=== PATIENT | male | born 1990 | race Hispanic/Latino ===

== ENCOUNTER 2021-04-14 04:36 | Inpatient (IN) | payer OTHER ==
--- NOTE | 2021-04-14 04:51 | Emergency Department Report ---
ED General Adult HPI - General Stated complaint: OVERDOSE - History of Present Illness Initial comments: 30-year-old male, no past medical history, presents to ED following heroin overdose. Patient at home, found unresponsive by his father. Father reports cold water on him and called EMS. When EMS arrived, patient had agonal respirations and pinpoint pupils. Patient appeared to have had an episode of emesis. Patient was given Narcan 2 mg by EMS. He is currently awake and alert. However, patient is hypoxic, with O2 sat of 80% on nonrebreather. EMS reports rales in all lung henriquez. Patient admits to using heroin. He denies any previous cough, fever, shortness of breath. Patient has not received a COVID-19 vaccine. -: This morning Quality: other (Painless) Improves with: none Worsens with: none Associated Symptoms: denies other symptoms Treatments Prior to Arrival: other (Narcan) - Related Data Allergies Allergy/AdvReac Type Severity Reaction Status Date / Time No Known Allergies Allergy Verified 04/14/21 05:54 ED Review of Systems ROS: Stated complaint: OVERDOSE Other details as noted in HPI Comment: All other systems reviewed and negative Constitutional: denies: fever Respiratory: denies: cough, shortness of breath ED Physical Exam - General General appearance: alert, in no apparent distress - Head Head exam: Present: atraumatic, normocephalic - Eye Eye exam: Present: normal appearance, PERRL, EOMI - ENT ENT exam: Present: mucous membranes moist - Neck Neck exam: Present: normal inspection - Respiratory Respiratory exam: Present: rales - Cardiovascular Cardiovascular Exam: Present: normal rhythm, tachycardia - GI/Abdominal GI/Abdominal exam: Present: soft. Absent: distended, tenderness - Extremities Exam Extremities exam: Present: normal inspection - Neurological Exam Neurological exam: Present: alert, oriented X3 - Psychiatric Psychiatric exam: Present: normal affect, normal mood - Skin Skin exam: Present: warm, dry, intact, normal color ED Course Vital Signs 04/14/21 04/14/21 04/14/21 04:42 04:52 05:00 Temperature 96.9 F L Pulse Rate 108 H 114 H Respiratory 27 H 18 27 H Rate Blood Pressure 108/61 O2 Sat by Pulse 80 L 84 78 L Oximetry 04/14/21 04/14/21 05:13 05:30 Temperature Pulse Rate 105 H 112 H Respiratory 23 16 Rate Blood Pressure 110/60 O2 Sat by Pulse 96 96 Oximetry ED Medical Decision Making - Lab Data Result diagrams: 04/14/21 04:52 04/14/21 04:52 - Radiology Data Radiology results: report reviewed, image reviewed - Medical Decision Making 30-year-old male presents to ED following heroin overdose. Patient was given Narcan in the field. He is currently A&O x3. Patient hypoxic with O2 sats 83% on nonrebreather. Chest x-ray shows bilateral pneumonia. This is likely secondary to aspiration, however spoke with hospitalist and will order Covid labs and testing. Patient has been given 1 dose of Zosyn here in the ED. He has been placed on BiPAP. Patient will be admitted by hospitalist, Dr. Jamison, for further management. Critical Care Time: Yes Critical care time in (mins) excluding proc time.: 35 Critical care attestation.: If time is entered above; I have spent that time in minutes in the direct care of this critically ill patient, excluding procedure time. Critical Care Time: 35 min ED Disposition Clinical Impression: Acute respiratory failure with hypoxia, Pneumonia, Accidental heroin overdose, Hyperglycemia Disposition: DC-09 OP ADMIT IP TO THIS HOSP Is pt being admited?: Yes Condition: Stable
--- NOTE | 2021-04-14 05:13 | XRay Report ---
CHEST 1 VIEW 04/14/2021 3:54 AM INDICATION / CLINICAL INFORMATION: sob. COMPARISON: None available. FINDINGS: SUPPORT DEVICES: None. HEART / MEDIASTINUM: No significant abnormality. LUNGS / PLEURA: Bilateral airspace disease, right greater than left. No pneumothorax. ADDITIONAL FINDINGS: No significant additional findings. IMPRESSION: 1. Bilateral pneumonia. Signer Name: Talia Davis MD Signed: 04/14/2021 5:09 AM Workstation Name: [id number]
[2021-04-14] MEDS ORDERED: PIPERACIL/TAZOBACTA 4.5/NS 100 4.5 GM/100 ML VIAL IV ONE (05:20)
[2021-04-14 05:32] LABS: Hematocrit 33.4 % (35.5-45.6); Hemoglobin 11.5 gm/dl (11.8-15.2); Mean Corpuscular HGB Conc 35 % (32-34); Mean Corpuscular Volume 87 fl (84-94); Platelet Count 245 K/mm3 (140-440); Red Blood Count 3.83 M/mm3 (3.65-5.03); Red Cell Distribution Width 15.1 % (13.2-15.2)
[2021-04-14] MEDS ORDERED: ACETAMINOPHEN 325 MG TAB PO PRN (05:39)
[2021-04-14] MEDS ORDERED: HYDROmorphone 1 MG/1 ML INJ IV PRN (05:39)
[2021-04-14] MEDS ORDERED: ALBUTEROL 2.5 MG/3 ML NEBU IH PRN (05:39)
[2021-04-14] MEDS ORDERED: oxyCODONE /ACETAMINOPHEN 5-325MG TAB PO PRN (05:39)
[2021-04-14] MEDS ORDERED: ONDANSETRON 4 MG/2 ML INJ IV PRN (05:39)
--- NOTE | 2021-04-14 05:47 | History and Physical Report ---
History of Present Illness Date of examination: 04/14/21 Date of admission: 04/14/21 Chief complaint: Heroin overdose History of present illness: 30-year-old male with history of drug abuse was brought to the hospital because of heroin overdose. Patient was found unresponsive by his father at home. Father reports cold water on him and called EMS. When EMS arrived, patient had agonal respirations and pinpoint pupils. Patient appeared to have had an episode of emesis. Patient was given Narcan 2 mg by EMS. He is currently awake and alert. However, patient is hypoxic, with O2 sat of 80% on nonrebreather. EMS reports rales in all lung henriquez. Patient admits to using heroin. He denies any previous cough, fever, shortness of breath. Patient has not received a COVID-19 vaccine. Past History Past Medical History: other Medications and Allergies Allergies Allergy/AdvReac Type Severity Reaction Status Date / Time No Known Allergies Allergy Unverified 04/14/21 04:52 Active Meds: Active Medications Piperacillin Sod/Tazobactam Sod (Zosyn/Ns 4.5gm/100ml) 4.5 gm in 100 mls @ 200 mls/hr IV ONCE ONE; Protocol Stop: 04/14/21 05:49 Review of Systems Constitutional: other (Unresponsive) Neurological: change in mentation Exam - Constitutional Vitals: Temp Pulse Resp BP Pulse Ox 96.9 F L 112 H 16 110/60 96 04/14/21 04:52 04/14/21 05:30 04/14/21 05:30 04/14/21 05:30 04/14/21 05:30 General appearance: Present: no acute distress, well-nourished - EENT Eyes: Present: PERRL ENT: hearing intact, clear oral mucosa - Neck Neck: Present: supple, normal ROM - Respiratory Respiratory effort: normal Respiratory: bilateral: diminished - Cardiovascular Heart Sounds: Present: S1 & S2. Absent: rub, click - Extremities Extremities: pulses symmetrical, No edema Peripheral Pulses: within normal limits - Abdominal General gastrointestinal: Present: soft, non-tender, non-distended, normal bowel sounds Male genitourinary: Present: normal - Integumentary Integumentary: Present: clear, warm, dry - Musculoskeletal Musculoskeletal: gait normal, strength equal bilaterally - Psychiatric Psychiatric: appropriate mood/affect, intact judgment & insight - Neurologic Neurologic: CNII-XII intact, moves all extremities Results - Imaging and Cardiology Chest x-ray: report reviewed Assessment and Plan VTE prophylaxis?: Chemical Plan of care discussed with patient/family: Yes - Patient Problems (1) Heroin overdose Current Visit: Yes Status: Acute Plan to address problem: Admit the patient to the [facility]. Put the patient on BiPAP. DuoNeb by nebulizer every 4 hours. Albuterol via nebulizer every 4 hours as needed. We will monitor the patient closely. We counseled the patient regarding quit taking heroin (2) Acute respiratory failure with hypoxia Current Visit: Yes Status: Acute Plan to address problem: Put the patient on BiPAP. DuoNeb by nebulizer every 4 hours. Albuterol via nebulizer every 4 hours as needed. Zosyn 4.5 g IV every 8 hours and Levaquin 750 mg IV daily. We do the blood cultures sputum culture we will monitor the patient closely. We counseled the patient regarding quit taking heroin (3) Pneumonia Current Visit: Yes Status: Acute Plan to address problem: DuoNeb by nebulizer every 4 hours. Albuterol via nebulizer every 4 hours as needed. Zosyn 4.5 g IV every 8 hours and Levaquin 750 mg IV daily. We do the blood cultures sputum culture we will monitor the patient closely. Repeat CBC BMP in the morning (4) DVT prophylaxis Current Visit: Yes Status: Acute Plan to address problem: Heparin 5000 units subcu every 8 hours for DVT prophylaxis. Pepcid 20 mg IV every 12 hours for GI prophylaxis. Patient is a full code
[2021-04-14 05:58] LABS: Alanine Aminotransferase 58 units/L (7-56); Albumin 3.7 g/dL (3.9-5); BUN/Creatinine Ratio 12; Blood Urea Nitrogen 12 mg/dL (9-20); Calcium 8.9 mg/dL (8.4-10.2); Hemolysis Index 8
[2021-04-14 06:00] LABS: Bilirubin,Direct < 0.2 mg/dL (0-0.2)
[2021-04-14] MEDS ORDERED: D5W/0.45% NACL 1,000 ML IV SCH (06:00)
[2021-04-14] MEDS ORDERED: INSULIN REGULAR, HUMAN 100 UNITS/1 ML IV ONE (06:04)
[2021-04-14 06:45] LABS: C-Reactive Protein 1.7 mg/dL (0.00-1.30)
[2021-04-14] MEDS: IPRATROPIUM/ALBUTEROL SULFATE 3 ML AMPUL.NEB IH SCH ×3 (07:39→20:00)
--- NOTE | 2021-04-14 09:00 | Cat Scan Report ---
CTA CHEST WITH IV CONTRAST INDICATION / CLINICAL INFORMATION: Elevated d-dimer. TECHNIQUE: Axial CT images were obtained through the chest after injection of 100 mL IV contrast. 3 plane MIP an d/or 3D reconstructions were produced. All CT scans at this location are performed using CT dose redu ction for [facility] by means of automated exposure control. COMPARISON: Chest radiograph performed today FINDINGS: PULMONARY ARTERIES: No pulmonary emboli. THORACIC AORTA: No significant abnormality. HEART: No significant abnormality. CORONARY ARTERIES: No significant calcification. PLEURA: No pleural effusion. No pneumothorax. LYMPH NODES: No significant adenopathy. LUNGS: The lungs are abnormal. Large areas of consolidated lung are seen in both lower lobes containi ng air bronchograms. Similar areas of airspace disease are seen throughout the right upper lobe, and to a lesser extent, left upper lobe. The appearance is consistent with severe bilateral pneumonia. ADDITIONAL FINDINGS: None. UPPER ABDOMEN: No acute findings. SKELETAL STRUCTURES: No significant osseous abnormality. IMPRESSION: 1. No CT evidence for pulmonary embolism. 2. Extensive bilateral airspace disease consistent with bilateral pneumonia. Signer Name: Chinyere Paris MD Signed: 04/14/2021 8:55 AM Workstation Name: [id number]
[2021-04-14] MEDS: FAMOTIDINE 20 MG/2 ML INJ IV SCH (10:18)
--- NOTE | 2021-04-14 11:37 | Event Note ---
Date: 04/14/21 Patient with Heroin overdose, bilateral pneumonia. Initially was on BIPAP, now on ventimask. Pulm consulted. Covid PUI. Swab collected as per Nurse. I have seen and examined patient.
[2021-04-14 12:02] LABS: Total Cells Counted 100
[2021-04-14 12:03] LABS: Platelet Estimate Consistent w Auto; RBC Morphology Normal
[2021-04-14] MEDS: PIPERACIL/TAZOBACTA 4.5/NS 100 4.5 GM/100 ML VIAL IV SCH (13:51)
[2021-04-14] MEDS ORDERED: D5W/0.9% NACL 1,000 ML IV SCH (14:00)
[2021-04-15] MEDS: FAMOTIDINE 20 MG/2 ML INJ IV SCH ×2 (05:45→11:43)
[2021-04-15] MEDS: PIPERACIL/TAZOBACTA 4.5/NS 100 4.5 GM/100 ML VIAL IV SCH ×2 (05:46→07:06)
[2021-04-15 06:19] LABS: Basophils % (Auto) 0.3 % (0.0-1.8); Eosinophils # (Auto) 0.3 K/mm3 (0.0-0.4); Eosinophils % (Auto) 2.8 % (0.0-4.3); Hematocrit 31.5 % (35.5-45.6); Hemoglobin 10.6 gm/dl (11.8-15.2); Lymphocytes # (Auto) 1.7 K/mm3 (1.2-5.4); Lymphocytes % (Auto) 14.5 % (13.4-35.0); Mean Corpuscular HGB Conc 34 % (32-34); Mean Corpuscular Volume 86 fl (84-94); Monocytes # (Auto) 0.6 K/mm3 (0.0-0.8); Monocytes % (Auto) 5.4 % (0.0-7.3); Platelet Count 234 K/mm3 (140-440); Red Blood Count 3.66 M/mm3 (3.65-5.03); Red Cell Distribution Width 14.7 % (13.2-15.2)
[2021-04-15 06:44] LABS: Blood Urea Nitrogen 6 mg/dL (9-20); Calcium 8.7 mg/dL (8.4-10.2); Hemolysis Index 3
[2021-04-15 06:58] LABS: BUN/Creatinine Ratio 9
[2021-04-15 07:07] VITALS: BP 112/73
--- NOTE | 2021-04-15 09:27 | Progress Note ---
Assessment and Plan Assessment and plan: (1) Heroin overdose Current Visit: Yes Status: Acute Plan to address problem: Admit the patient to the [facility]. Put the patient on BiPAP. DuoNeb by nebulizer every 4 hours. Albuterol via nebulizer every 4 hours as needed. We will monitor the patient closely. We counseled the patient regarding quit taking heroin (2) Acute respiratory failure with hypoxia Current Visit: Yes Status: Acute Plan to address problem: Put the patient on BiPAP. DuoNeb by nebulizer every 4 hours. Albuterol via nebulizer every 4 hours as needed. Zosyn 4.5 g IV every 8 hours and Levaquin 750 mg IV daily. We do the blood cultures sputum culture we will monitor the patient closely. We counseled the patient regarding quit taking heroin (3) Pneumonia Current Visit: Yes Status: Acute Plan to address problem: DuoNeb by nebulizer every 4 hours. Albuterol via nebulizer every 4 hours as needed. Zosyn 4.5 g IV every 8 hours and Levaquin 750 mg IV daily. We do the blood cultures sputum culture we will monitor the patient closely. Repeat CBC BMP in the morning (4) DVT prophylaxis Current Visit: Yes Status: Acute Plan to address problem: Heparin 5000 units subcu every 8 hours for DVT prophylaxis. Pepcid 20 mg IV every 12 hours for GI prophylaxis. Patient is a full code Acute toxic metabolic encephalopathy due to Heroin overdose 04/15/21 patient presented with unresponsiveness after Heropin overdose. He is diagnosed with acute toxic metabolic encephalopathy. He also has acute respiratory failure due to bilateral pneumonia. Continue Antibiotics. Covid test negative. Patient now on Oxygen by [place] and orders put in to transfer to Med/surg. He is now fully awake and alert. History Interval history: Patient presented with unresponsiveness after using Heroin Now awake,alert Hospitalist Physical - Physical exam Narrative exam: Gen: Not in acute distress, lying in bed, ventimask on HEENT: Normocephalic, atraumatic Neck : supple, no JVD Heart:S1 and S2 reg, no murmurs, rubs or gallop Lungs: clear to auscultation bilaterally, no wheeze Abd: Soft , non tender, non distended, normal bowel sounds Ext: No edema, no clubbing, no cyanosis Neuro: Awake, alert, oriented X 3, moves all ext - Constitutional Vitals: Temp Pulse Resp BP Pulse Ox 96.9 F L 100 H 24 112/73 99 04/14/21 04:52 04/15/21 08:00 04/15/21 08:00 04/15/21 07:30 04/15/21 09:23 General appearance: Present: no acute distress, well-nourished Results - Labs CBC & Chem 7: 04/15/21 05:34 04/15/21 05:34 Labs: Laboratory Last Values WBC 11.9 K/mm3 (4.5-11.0) H 04/15/21 05:34 RBC 3.66 M/mm3 (3.65-5.03) 04/15/21 05:34 Hgb 10.6 gm/dl (11.8-15.2) L 04/15/21 05:34 Hct 31.5 % (35.5-45.6) L 04/15/21 05:34 MCV 86 fl (84-94) 04/15/21 05:34 MCH 29 pg (28-32) 04/15/21 05:34 MCHC 34 % (32-34) 04/15/21 05:34 RDW 14.7 % (13.2-15.2) 04/15/21 05:34 Plt Count 234 K/mm3 (140-440) 04/15/21 05:34 Lymph % (Auto) 14.5 % (13.4-35.0) 04/15/21 05:34 Stone % (Auto) 5.4 % (0.0-7.3) 04/15/21 05:34 Eos % (Auto) 2.8 % (0.0-4.3) 04/15/21 05:34 Baso % (Auto) 0.3 % (0.0-1.8) 04/15/21 05:34 Lymph # (Auto) 1.7 K/mm3 (1.2-5.4) 04/15/21 05:34 Stone # (Auto) 0.6 K/mm3 (0.0-0.8) 04/15/21 05:34 Eos # (Auto) 0.3 K/mm3 (0.0-0.4) 04/15/21 05:34 Baso # (Auto) 0.0 K/mm3 (0.0-0.1) 04/15/21 05:34 Add Manual Diff Complete 04/14/21 04:52 Total Counted 100 04/14/21 04:52 Seg Neutrophils % 77.0 % (40.0-70.0) H 04/15/21 05:34 Seg Neuts % (Manual) 71.0 % (40.0-70.0) H 04/14/21 04:52 Band Neutrophils % 24.0 % 04/14/21 04:52 Lymphocytes % (Manual) 5.0 % (13.4-35.0) L 04/14/21 04:52 Nucleated RBC % Not Reportable 04/14/21 04:52 Seg Neutrophils # 9.2 K/mm3 (1.8-7.7) H 04/15/21 05:34 Seg Neutrophils # Man 11.8 K/mm3 (1.8-7.7) H 04/14/21 04:52 Band Neutrophils # 4.0 K/mm3 04/14/21 04:52 Lymphocytes # (Manual) 0.8 K/mm3 (1.2-5.4) L 04/14/21 04:52 Abs React Lymphs (Man) 0.0 K/mm3 04/14/21 04:52 Monocytes # (Manual) 0.0 K/mm3 (0.0-0.8) 04/14/21 04:52 Eosinophils # (Manual) 0.0 K/mm3 (0.0-0.4) 04/14/21 04:52 Basophils # (Manual) 0.0 K/mm3 (0.0-0.1) 04/14/21 04:52 Metamyelocytes # 0.0 K/mm3 04/14/21 04:52 Myelocytes # 0.0 K/mm3 04/14/21 04:52 Promyelocytes # 0.0 K/mm3 04/14/21 04:52 Blast Cells # 0.0 K/mm3 04/14/21 04:52 WBC Morphology Not Reportable 04/14/21 04:52 Hypersegmented Neuts Not Reportable 04/14/21 04:52 Hyposegmented Neuts Not Reportable 04/14/21 04:52 Hypogranular Neuts Not Reportable 04/14/21 04:52 Smudge Cells Not Reportable 04/14/21 04:52 Toxic Granulation Not Reportable 04/14/21 04:52 Toxic Vacuolation Not Reportable 04/14/21 04:52 Dohle Bodies Not Reportable 04/14/21 04:52 Pelger-Huet Anomaly Not Reportable 04/14/21 04:52 Niranjan Rods Not Reportable 04/14/21 04:52 Platelet Estimate Consistent w auto 04/14/21 04:52 Clumped Platelets Not Reportable 04/14/21 04:52 Plt Clumps, EDTA Not Reportable 04/14/21 04:52 Large Platelets Not Reportable 04/14/21 04:52 Giant Platelets Not Reportable 04/14/21 04:52 Platelet Satelliting Not Reportable 04/14/21 04:52 Plt Morphology Comment Not Reportable 04/14/21 04:52 RBC Morphology Normal 04/14/21 04:52 Dimorphic RBCs Not Reportable 04/14/21 04:52 Polychromasia Not Reportable 04/14/21 04:52 Hypochromasia Not Reportable 04/14/21 04:52 Poikilocytosis Not Reportable 04/14/21 04:52 Anisocytosis Not Reportable 04/14/21 04:52 Microcytosis Not Reportable 04/14/21 04:52 Macrocytosis Not Reportable 04/14/21 04:52 Spherocytes Not Reportable 04/14/21 04:52 Pappenheimer Bodies Not Reportable 04/14/21 04:52 Sickle Cells Not Reportable 04/14/21 04:52 Target Cells Not Reportable 04/14/21 04:52 Tear Drop Cells Not Reportable 04/14/21 04:52 Ovalocytes Not Reportable 04/14/21 04:52 Helmet Cells Not Reportable 04/14/21 04:52 Brown-Waldo Bodies Not Reportable 04/14/21 04:52 Philadelphia Rings Not Reportable 04/14/21 04:52 Edison Cells Not Reportable 04/14/21 04:52 Bite Cells Not Reportable 04/14/21 04:52 Crenated Cell Not Reportable 04/14/21 04:52 Elliptocytes Not Reportable 04/14/21 04:52 Acanthocytes (Spur) Not Reportable 04/14/21 04:52 Rouleaux Not Reportable 04/14/21 04:52 Hemoglobin C Crystals Not Reportable 04/14/21 04:52 Schistocytes Not Reportable 04/14/21 04:52 Malaria parasites Not Reportable 04/14/21 04:52 Yasmany Bodies Not Reportable 04/14/21 04:52 Hem Pathologist Commnt No 04/14/21 04:52 D-Dimer 942.21 ng/mlDDU (0-234) H 04/14/21 05:43 ABG pH 7.381 (7.320-7.450) 04/14/21 12:05 POC ABG pCO2 44.0 mmHg (32.0-48.0) 04/14/21 12:05 POC ABG pO2 58.9 mmHg (83-108) L 04/14/21 12:05 POC ABG HCO3 25.5 04/14/21 12:05 ABG O2 Saturation 89.9 (0-100) 04/14/21 12:05 POC ABG Base Excess 0.2 04/14/21 12:05 ABG Hemoglobin 11.6 (12.0-17.5) L 04/14/21 12:05 ABG Oxyhemoglobin 89.5 (94-98) L 04/14/21 12:05 ABG Methemoglobin 0.3 (0.0-1.5) 04/14/21 12:05 ABG Sodium 134.7 mmol/L (136.0-145.0) L 04/14/21 12:05 ABG Potassium 4.3 mmol/L (3.40-4.50) 04/14/21 12:05 ABG Chloride 105.0 mmol/L (98-107) 04/14/21 12:05 ABG Glucose 101 mg/dL (65-95) H 04/14/21 12:05 Carboxyhemoglobin 0.2 (0.5-1.5) L 04/14/21 12:05 FiO2 % 50.0 04/14/21 12:05 Sodium 142 mmol/L (137-145) D 04/15/21 05:34 Potassium 4.1 mmol/L (3.6-5.0) 04/15/21 05:34 Chloride 105.0 mmol/L (98-107) 04/15/21 05:34 Carbon Dioxide 28 mmol/L (22-30) 04/15/21 05:34 Anion Gap 13 mmol/L 04/15/21 05:34 BUN 6 mg/dL (9-20) L 04/15/21 05:34 Creatinine 0.7 mg/dL (0.8-1.3) L 04/15/21 05:34 Estimated GFR > 60 ml/min 04/15/21 05:34 BUN/Creatinine Ratio 9 % 04/15/21 05:34 Glucose 102 mg/dL (75-100) H 04/15/21 05:34 POC Glucose 70 mg/dL (70-105) 04/14/21 07:32 Calcium 8.7 mg/dL (8.4-10.2) 04/15/21 05:34 Ferritin 868.7 ng/mL (30.0-300.0) H 04/14/21 05:43 Total Bilirubin 0.40 mg/dL (0.1-1.2) 04/14/21 04:52 Direct Bilirubin < 0.2 mg/dL (0-0.2) 04/14/21 04:52 Indirect Bilirubin 0.2 mg/dL 04/14/21 04:52 AST 127 units/L (5-40) H 04/14/21 04:52 ALT 58 units/L (7-56) H 04/14/21 04:52 Alkaline Phosphatase 130 units/L (35-129) H 04/14/21 04:52 Lactate Dehydrogenase 266 units/L (91-180) H 04/14/21 05:43 C-Reactive Protein 1.70 mg/dL (0.00-1.30) H 04/14/21 05:43 Total Protein 6.0 g/dL (6.3-8.2) L 04/14/21 04:52 Albumin 3.7 g/dL (3.9-5) L 04/14/21 04:52 Albumin/Globulin Ratio 1.6 % 04/14/21 04:52 Procalcitonin 0.98 ng/mL (<0.15) 04/14/21 05:43 Arterial Blood Glucose 101 mg/dL (65-95) H 04/14/21 12:05 Coronavirus (PCR) Negative (Negative) 04/14/21 Unknown Microbiology: Microbiology 04/14/21 05:43 Peripheral/Venous Blood Culture - Preliminary Culture in Progress 04/14/21 05:43 Peripheral/Venous Blood Culture - Preliminary Culture in Progress Active Medications - Current Medications Current Medications: Generic Name Dose Route Start Last Admin Trade Name Freq PRN Reason Stop Dose Admin Acetaminophen 650 mg 04/14/21 05:39 Acetaminophen 325 Mg Tab PO Q4H PRN Pain MILD(1-3)/Fever >100.5/ANDERS Albuterol 2.5 mg 04/14/21 05:39 Albuterol 2.5 Mg/3 Ml Nebu IH Q4HRT PRN Shortness Of Breath Albuterol/Ipratropium 1 ampul 04/14/21 08:00 04/14/21 20:00 Ipratropium/Albuterol Sulfate 3 Ml Ampul.Neb IH 1 ampul Q6HRT OCTAVIANO Administration Famotidine 20 mg 04/14/21 10:00 04/15/21 05:45 Famotidine 20 Mg/2 Ml Inj IV 20 mg BID OCTAVIANO Administration Heparin Sodium (Porcine) 5,000 unit 04/14/21 06:00 Heparin 5,000 Unit/1 Ml Vial SUB-Q Q8HR OCTAVIANO Hydromorphone HCl 0.5 mg 04/14/21 05:39 Hydromorphone 1 Mg/1 Ml Inj IV Q3H PRN Pain , Severe (7-10) Levofloxacin/Dextrose 750 mg in 150 mls @ 100 mls/hr 04/14/21 06:00 04/15/21 08:18 Levaquin 750mg/150ml IV 100 mls/hr Q24H OCTAVIANO Administration Protocol Piperacillin Sod/Tazobactam Sod 4.5 gm in 100 mls @ 200 mls/hr 04/14/21 14:00 04/15/21 07:06 Zosyn/Ns 4.5gm/100ml IV 200 mls/hr Q8H OCTAVIANO Administration Protocol Dextrose/Sodium Chloride 1,000 mls @ 100 mls/hr 04/14/21 14:00 D5ns IV DIRECT OCTAVIANO Ondansetron HCl 4 mg 04/14/21 05:39 Ondansetron 4 Mg/2 Ml Inj IV Q8H PRN Nausea And Vomiting Oxycodone/Acetaminophen 1 tab 04/14/21 05:39 Oxycodone /Acetaminophen 5-325mg Tab PO Q6H PRN Pain, Moderate (4-6) Sodium Chloride 10 ml 04/14/21 10:00 04/14/21 10:19 Sodium Chloride 0.9% 10 Ml Flush Syringe IV 10 ml BID OCTAVIANO Administration Sodium Chloride 10 ml 04/14/21 05:39 Sodium Chloride 0.9% 10 Ml Flush Syringe IV PRN PRN LINE FLUSH
[2021-04-15 10:11] LABS: Albumin 3.4 g/dL (3.9-5); Bilirubin,Direct 0.2 mg/dL (0-0.2)
[2021-04-15] MEDS: HEPARIN 5,000 UNIT/1 ML VIAL SUB-Q SCH (10:32)
[2021-04-15] MEDS: IPRATROPIUM/ALBUTEROL SULFATE 3 ML AMPUL.NEB IH SCH (10:34)
--- NOTE | 2021-04-15 12:53 | Event Note ---
Date: 04/15/21 Patient admitted as overdose and likely aspiration pneumonitis. Became hypoxic and required venturi mask. Started on levaquin and zosyn. Now weaned to 4 liters NC with good sats and tolerating. Would stop Zosyn and levaquin and change to Augmentin 875 BID. COntinue to wean FiO2 for sats >88%. Will continue to follow. Asked IMS to downgrade to floor.
--- NOTE | 2021-04-15 16:00 | Event Note ---
Date: 04/15/21 Called by Nurse that patient left against medical advice.
--- NOTE | 2021-04-15 16:00 | Discharge Summary ---
Providers - Providers Date of Admission: 04/14/21 05:39 Date of discharge: 04/15/21 Attending physician: ADEBAYO MARTINEZ 04/14/21 09:38 Consult to Physician [CONS] Routine Comment: Consulting Provider: HECTOR JAY Physician Instructions: Reason For Exam: Pneumonia, acute resp failure Primary care physician: CHIEF PSYCHOLOGIST Hospitalization Condition: Undetermined Hospital course: 30-year-old male with history of drug abuse was brought to the hospital because of heroin overdose. Patient was found unresponsive by his father at home. Father reports cold water on him and called EMS. When EMS arrived, patient had agonal respirations and pinpoint pupils. Patient appeared to have had an episode of emesis. Patient was given Narcan 2 mg by EMS. Patient was hypoxic, with O2 sat of 80% on nonrebreather. EMS reports rales in all lung henriquez. Patient admits to using heroin. He denies any previous cough, fever, shortness of breath. Patient has not received a COVID-19 vaccine. He was seen and evaluated in ED. Chest X ray revealed bilateral pneumonia. He was started on iv Antibiotics, Covid test was negative. However following day patient left against medical advice, on 04/15/21. 04/15/21 patient presented with unresponsiveness after Heroin overdose. He is diagnosed with acute toxic metabolic encephalopathy. He also has acute respiratory failure due to bilateral pneumonia. Continue Antibiotics. Covid test negative. Patient now on Oxygen by [place] and orders put in to transfer to Med/surg. He is now fully awake and alert. Patient left against medical advice Disposition: LEFT AGAINST MEDICAL ADVICE Final Discharge Diagnosis (Prints w/discharge instructions): 1.Heroin overdose. 2.Pneumonia - Discharge Diagnoses (1) Left against medical advice Status: Acute (2) Accidental heroin overdose Status: Acute (3) Acute respiratory failure with hypoxia Status: Acute (4) Heroin overdose Status: Acute (5) Hyperglycemia Status: Acute (6) Pneumonia Status: Acute Core Measure Documentation - Palliative Care Palliative Care/ Comfort Measures: Not Applicable - Core Measures Any of the following diagnoses?: none Exam - Constitutional Vitals: Temp Pulse Resp BP Pulse Ox 96.9 F L 89 26 H 112/73 97 04/14/21 04:52 04/15/21 14:00 04/15/21 14:00 04/15/21 14:00 08/01/21 13:00 Plan Follow up with: PRIMARY CARE, [Primary Care Provider] - 3-5 Days
== END 2021-04-15 16:08 | disposition left against medical advice (07) | DRG 917 ==
LOC: EDBD → ED 04:36 → IMCU 05:39 → CC1 04-15 08:57
PROVIDERS: ADMIT Hospitalist; ATTEND Internal Medicine
PROC: 5A09357 Assistance with Respiratory Ventilation, Less than 24 Consecutive Hours, Continuous Positive Airway Pressure (ICD-10-PCS; principal; 2021-04-14)
PROC: 4A033R1 Measurement of Arterial Saturation, Peripheral, Percutaneous Approach (ICD-10-PCS; 2021-04-14)
DX: T40.1X1A Poisoning by heroin, accidental (unintentional), initial encounter (principal); J96.01 Acute respiratory failure with hypoxia; J18.9 Pneumonia, unspecified organism; G92 Toxic encephalopathy; R73.9 Hyperglycemia, unspecified; Z53.29 Procedure and treatment not carried out because of patient's decision for other reasons; Z20.822 Contact with and (suspected) exposure to COVID-19; Y92.89 Other specified places as the place of occurrence of the external cause
CPT/HCPCS: 36415; 36600; 71045; 71275; 80048; 80076; 82728; 82805; 82947; 82962; 83615; 84132; 84145; 85007; 85025; 85379; 86140; 87040; 94640; 94644; 99291; G0378; J1956; J2543; J7042; Q9967; U0003